=== PATIENT | male | born 1985 | race Caucasian/White ===

== ENCOUNTER 2016-11-12 06:11 | Day surgery (SDC) | payer OTHER ==
[~2016-11-12] VITALS: Ht 177.8 cm; Wt 110.7 kg
--- NOTE | 2016-11-12 10:05 | Operative Note ---
Procedure/Operative Record Date of Procedure: 11/12/16 Procedure performed: Functional endoscopic sinus surgery includin. Bilateral frontal sinusotomy 2. Bilateral sphenoid sinusotomy 3. Bilateral maxillary sinusotomy Pre-op diagnosis: 1. Chronic sinusitis 2. Sinus pain Post-op dianosis: same Surgeon: Tyson Coronado MD Anesthesia type: general Description of procedure: The patient was taken to the operating room and given general endotracheal anesthesia prepped and draped in standard fashion. CT scan was reviewed on pacs. He had a bilateral frontal sphenoid and maxillary sinus mucosal thickening. Nasal cavities were decongested with Afrin solution. A 0 degree endoscope was used to visualize the nasal cavities and sinus openings. No evidence of polyps. A frontal sinus seeker was used to identify the LEFT nasal frontal duct. The seeker was introduced into the nasal frontal duct. There was minimal resistance. An Entellus balloon was then introduced into the nasal frontal duct. The balloon was inflated to 12 yessy. The balloon was repositioned and again inflated to 12 yessy. The balloon was removed and visualization revealed opening into the frontal sinus attention was then directed to the RIGHT side. A frontal seeker was introduced into the nasal frontal duct. An balloon was then inserted into the nasal frontal duct and inflated to 12 yessy. The balloon was repositioned and reinflated to 12 yessy. Reexamination revealed patent nasal frontal duct into the frontal sinus. Attention was then directed to the LEFT sphenoid sinus. The natural ostium of the sphenoid sinus was identified and a sinus seeker was introduced into the ostium. An Entellus balloon was then inserted into the sphenoid ostium and inflated to 12 yessy. Revisualization revealed patent opening of the ostium. Attention was directed to the RIGHT side. A sphenoid sinus seeker was introduced into the natural ostium of the sphenoid. A balloon was then inserted into the natural ostium and inflated to 12 yessy. Revisualization revealed patent sphenoid ostium. Attention was then directed to the LEFT middle meatus. A maxillary sinus seeker was used to identify the natural ostium of the maxillary sinus. The Entellus balloon was inserted into the natural ostium of the maxillary sinus and inflated to 12 yessy. The balloon was repositioned and again inflated to 12 yessy. Revisualization revealed patent natural ostium of the maxillary sinus. Attention was then directed to the RIGHT middle meatus. A maxillary sinus seeker was used to identify the natural ostium of the maxillary sinus. The balloon was inserted into the natural ostium of the maxillary sinus and inflated to 12 yessy. There was opening of the natural ostium. The patient was awakened and taken to postop recovery room in stable condition. The patient tolerated the procedure well there were no intraoperative, patient's. Findings: Occulsion of the natural ostium of the frontal maxillary and sphenoid sinuses bilaterally. EBL (ml): 10 Complications: None at 1009
--- NOTE | 2016-11-12 14:05 | Anesthesia Record ---
Anesthesia Record Part I Total IV fluids: 1000 EBL (ml): 10 Urine Output: 0 B/P: 184/94 % SaO2: 98 Pulse: 84 Resps: 16 Temp: 98.4 Patient is: Drowsy, Stable Stable to PACU at: 0903 at 1404
--- NOTE | 2016-11-12 14:06 | Anesthesia Record ---
Anesthesia Record Part II Discharge time: 912 Destination: Same day surgery PACU nurse assessment review? Yes Patient is: Awake, Stable Anesthesia complications? No at 1404
[2016-11-12 19:26] VITALS: BP 141/86
== END 2016-11-12 11:05 | disposition home or self-care (01) ==
LOC: SDC 06:11
PROVIDERS: Otolaryngology Otolaryngology/Facial Plastic Surgery
PROC: 09BS4ZZ Excision of Right Frontal Sinus, Percutaneous Endoscopic Approach (ICD-10-PCS; 2016-11-12)
PROC: 09BW4ZZ Excision of Right Sphenoid Sinus, Percutaneous Endoscopic Approach (ICD-10-PCS; 2016-11-12)
PROC: 09BX4ZZ Excision of Left Sphenoid Sinus, Percutaneous Endoscopic Approach (ICD-10-PCS; 2016-11-12)
PROC: 09BQ4ZZ Excision of Right Maxillary Sinus, Percutaneous Endoscopic Approach (ICD-10-PCS; 2016-11-12)
PROC: 09BR4ZZ Excision of Left Maxillary Sinus, Percutaneous Endoscopic Approach (ICD-10-PCS; 2016-11-12)
PROC: 09BT4ZZ Excision of Left Frontal Sinus, Percutaneous Endoscopic Approach (ICD-10-PCS; principal; 2016-11-12 07:30)
DX: J32.8 Other chronic sinusitis (principal)
CPT/HCPCS: C1726; J2405